=== PATIENT | female | born 1965 | race Two or more races ===

== ENCOUNTER 2016-11-22 17:44 | Emergency (ER) | payer MEDICAID ==
[~2016-11-22] VITALS: Ht 144.8 cm; Wt 60.8 kg
[~2016-11-22 17:44] MED LIST: IBUP-1955 PO; LACT10SO PO
[2016-11-22] MEDS ORDERED: ACET-2605 PO (18:03)
--- NOTE | 2016-11-22 19:03 | NUR ---
pt is in room #2b. dr Early evaluated the pt.
[2016-11-22 21:18] VITALS: BP 132/75
--- NOTE | 2016-11-22 21:18 | NUR ---
Patient discharged to home in stable conditon. Written and verbal after care instructions given. Patient verbalizes understanding of instructions. patient left with stable gait.
== END 2016-11-22 21:19 | disposition home or self-care (01) ==
LOC: ER 17:55
DX: R10.9 Unspecified abdominal pain (principal); Z88.6 Allergy status to analgesic agent
CPT/HCPCS: 74176; 99284; A4663

== ENCOUNTER 2016-12-02 11:56 | Emergency (ER) | payer MEDICAID ==
[~2016-12-02] VITALS: Ht 149.9 cm; Wt 61.2 kg
[~2016-12-02 11:56] MED LIST changes: +ACET-2605 PO; -IBUP-1955 PO; -LACT10SO PO
--- NOTE | 2016-12-02 12:14 | NUR ---
PT IS IN ROOM #2A. DR CABRERA EVALUATED THE PT.
[2016-12-02 14:16] LABS: *BILIRUBIN,URIN NEGATIVE (NEGATIVE); *BLOOD, URINE Trace-lysed (NEGATIVE); *CLARITY,URINE CLEAR (CLEAR); *COLOR,URINE YELLOW (YELLOW); *KETONES,URINE NEGATIVE (NEGATIVE); *PROTEIN,URINE NEGATIVE (NEGATIVE); *UROBILINOGEN,URINE 0.2 E.U./dl (NORMAL); LEUKOCYTE ESTERASE ,URINE NEGATIVE (NEGATIVE); NITRITE, URINE NEGATIVE (NEGATIVE); UGLUCOSE NEGATIVE (NEGATIVE)
[2016-12-02 14:22] LABS: BASOPHILS % (AUTO) 0.5 % (0.0-2.0); EOSINOPHILS # (AUTO) 0.2 K/uL (0.0-0.7); HEMATOCRIT 37.4 % (37-47); HEMOGLOBIN 12.3 G/DL (12.0-16.0); LYMPHOCYTES # (AUTO) 2.2 K/UL (0.8-4.8); MEAN CORPUSCULAR HEMOGLOBIN 26.8 UUG (27.0-31.0); MEAN CORPUSCULAR HGB CONC 33 g/dL (32.0-37.0); MEAN CORPUSCULAR VOLUME 81.3 FL (81.0-99.0); MONOCYTES # (AUTO) 0.4 K/UL (0.1-1.30); MONOCYTES % (AUTO) 4.9 % (0.0-11.0); NEUTROPHILS # (AUTO) 5.5 K/UL (1.8-8.9); NEUTROPHILS % (AUTO) 65.6 % (38.5-71.5); PLATELET COUNT (AUTO) 272 K/UL (150-450); WHITE BLOOD COUNT (AUTO) 8.3 K/UL (4.0-11.2)
[2016-12-02 14:23] LABS: CREATININE 0.6 mg/dL (0.6-1.3); POTASSIUM 3.7 mmol/L (3.5-5.1)
[2016-12-02 14:27] LABS: SQUAMOUS EPITHELIAL CELL,UR FEW /HPF (NONE SEEN); WBC,URINE 0-3 /HPF (0-3)
[2016-12-02 14:28] LABS: MUCUS,URINE FEW /LPF (0-FEW)
[2016-12-02 14:29] LABS: BILIRUBIN,DIRECT 0.1 mg/dL (0.0-0.2); BILIRUBIN,TOTAL 0.3 mg/dL (0.2-1.0); TOTAL PROTEIN, SERUM 7.2 g/dL (6.4-8.2)
--- NOTE | 2016-12-02 16:18 | NUR ---
PT WAS D/C TO HOME. D/C INSTRUCTIONS GIVEN TO THE PT. PT DENIES PAIN . NO NAUSEA / VOMITING AT THIS TIME.
[2016-12-02 16:19] VITALS: BP 131/78
== END 2016-12-02 16:20 | disposition home or self-care (01) ==
LOC: ER 11:57
DX: R10.30 Lower abdominal pain, unspecified (principal); Z88.6 Allergy status to analgesic agent
CPT/HCPCS: 36415; 70030-TC; 83690; 84703; 85025; 93005; A4663